=== PATIENT | female | born 1995 | race Caucasian/White ===

== ENCOUNTER 2019-09-28 07:30 | Emergency (ER) | payer OTHER ==
[~2019-09-28] VITALS: Ht 157.5 cm; Wt 72.6 kg
[2019-09-28] MEDS ORDERED: TRAMADOL 50 MG50 MG PO (08:53)
[2019-09-28 09:34] VITALS: BP 118/56
== END 2019-09-28 09:34 | disposition home or self-care (01) ==
LOC: ER 07:30
DX: S80.02XA Contusion of left knee, initial encounter (principal); S80.01XA Contusion of right knee, initial encounter; S00.531A Contusion of lip, initial encounter; V49.88XA Car occupant (driver) (passenger) injured in other specified transport accidents, initial encounter; Y93.89 Activity, other specified; Y92.413 State road as the place of occurrence of the external cause; Y99.9 Unspecified external cause status